=== PATIENT | female | born 1950 | race Two or more races ===

== ENCOUNTER 2025-02-04 14:18 | Emergency (ER) | payer MEDICARE, MEDICAID, SELFPAY ==
[2025-02-04 15:24] VITALS: BP 125/70; PULSE 85; RESP 20; TEMP 37.4; O2SAT 96
--- NOTE | 2025-02-04 15:46 | EDNOTE_ITS ---
<Statement entered by Rukhsana Campuzano MD - 02/05/25 06:24> As co-signing physician, I was present and available for consult prn. I concur with the plan and care as documented by the midlevel provider. Lower Extremity Injury RME/HPI General Chief Complaint: Extremity Injury, Lower Stated Complaint: Right leg pain Time Seen by Provider: 02/04/25 15:34 Arrival date/time: 02/04/25 14:18 74-year-old female presents to the emergency department for complaints of injury to her right moise Sunday patient saw her PCP and gave her tetanus shot. Patient reports now she has erythema to the site Limitations: no limitations Related Data Previous Rx's ?Medication ?Instructions ?Recorded clindamycin HCl 300 mg capsule 300 mg PO TID 7 days #2 1 caps 02/04/25 mupirocin 2 % topical ointment 1 applic topical TID 10 days #22 02/04/25 grams Allergies Allergy/AdvReac Type Severity Reaction Status Date / Time Penicillins Allergy Mild HIVES Verified 02/04/25 14:23 Review of Systems Review of Systems Systems Reviewed: All systems reviewed, normal except as documented Constitutional Constitutional: Reports system reviewed and no additional complaints, except as documented, Denies fever(s) and Denies headache(s) Eyes Eyes: Reports system reviewed and no additional complaints, except as documented and Denies blurry vision ENT Ears, Nose, Mouth, and Throat: Reports system reviewed and no additional complaints, except as documented, Denies headache(s), Denies nasal congestion and Denies nasal discharge Cardiovascular Cardiovascular: Reports system reviewed and no additional complaints, except as documented, Denies chest pain and Denies dyspnea Respiratory Respiratory: Reports system reviewed and no additional complaints, except as documented, Denies chest congestion, Denies cough and Denies dyspnea Gastrointestinal Gastrointestinal: Reports system reviewed and no additional complaints, except as documented and Denies abdominal pain Integumentary/Breasts Skin/Breast: Reports system reviewed and no additional complaints, except as documented, Denies rash and Reports wounds (Abrasion right lower extremity surrounding erythema) Neurologic Neurologic: Reports system reviewed and no additional complaints, except as documented, Reports as per HPI and Denies headache(s) Past Medical History Social History SMOKING STATUS: Never smoker ED Exam General Limitations: Present no limitations General appearance: Present alert and in no apparent distress Head Head exam: Present atraumatic Eye Eye exam: Present normal appearance, PERRL and EOMI ENT ENT exam: Present normal exam, normal oropharynx and mucous membranes moist Neck Neck exam: Present normal inspection, full ROM and trachea midline Chest Chest inspection: Present normal inspection and symmetric chest wall rise Respiratory Respiratory exam: Present normal lung sounds bilaterally Cardiovascular Cardiovascular exam: Present regular rate, normal rhythm and normal heart sounds Abdominal Exam Abdominal exam: Present soft and normal bowel sounds Extremities Exam Extremities exam: Present full ROM, tenderness, normal capillary refill and other (Erythema, pain right lower extremity which) Back Exam Back exam: Present normal inspection and full ROM Neurological Exam Neurological exam: Present alert, oriented X3 and CN II-XII intact Psychiatric Psychiatric exam: Present normal affect and normal mood Skin Skin exam: Present warm, dry, intact and normal color Course Quality Measures none Orders Category Date Time Status TDap [Obtain Tdap Consent] X1 Care 02/04/25 15:49 Completed TET,DIP/PERT AC (Adult)-Tdap [Boostrix Adult (Tdap) Med 02/04/25 15:49 Discontinued Vacc] 0.5 ml IMI .ONCE ONE Vital Signs Vital signs: Vital Signs Temperature 99.3 F 02/04/25 15:24 Pulse Rate 85 02/04/25 15:24 Respiratory Rate 20 02/04/25 15:24 Blood Pressure 125/70 02/04/25 15:24 Pulse Oximetry (%) 96 02/04/25 15:24 Oxygen Delivery Method Room Air 02/04/25 15:24 O2 saturation 96% on room air with normal limits Extremity Injury, Lower MDM Narrative MDM Narrative:: 74-year-old female presents to the emergency department for complaints of injury to her right moise Sunday patient saw her PCP and gave her tetanus shot. Patient reports now she has erythema to the site On exam patient is erythema right lower extremity I suspect patient has mild cellulitis patient will be treated with a course of antibiotics Patient discharged home in no distress to follow-up with primary care doctor in the next 24 to 48 hours and for any worsening symptoms to return to the ER immediately Patient data External records reviewed:: [facility] previous records Clinical information provided by:: patient Social determinants that could affect healthcare access:: none Patient has the following chronic illnesses:: None How is presenting disease/condition affected by chronic disease/condition?: no chronic disease Evaluation data The following diagnostics were reviewed and interpreted by me:: other (specify) Lab and/or radiology exams considered but not ordered:: Consider not ordered Interpretation Summary: N/A Medications / Prescriptions Medications or Prescriptions considered but not ordered:: Given Medication administrations:: Medication Administration History Discontinued Medications Diphtheria/Tetanus/Acell Pertussis (Diphth,Pertuss(Acell),Tet Vac 0.5 Ml Syr- Adult) 0.5 ml IMi .ONCE ONE Stop: 02/04/25 15:50 Last Admin: 02/04/25 15:54 Dose: Not Given Documented By: SANDIE Non-Admin Reason: Patient Refused Given Consultations Consultation(s) initiated? (list below): No Diagnosis Extremity Injury, Lower Differential Diagnosis: other (Abrasion, laceration) Most likely diagnosis given after review of the tests above:: Abrasion right lower extremity Admission Indicated Admission indicated?: not indicated Admission Request Was there a request for admission?: No Disposition Plan Disposition Plan: Discharge Discharge Attestation Discharge Attestation: The patient and all family members were given an opportunity to ask questions and understood the discharge instructions. Discharge instructions specifically effects, indications for sooner follow up or return to the emergency department, and the expected course of current diagnosis. Patient condition: Stable Discharge Plan Plan Patient Disposition: HOME (Self Care) Discharge Disposition comment: Stable Prescriptions/Referrals Prescriptions/Med Rec: New clindamycin HCl 300 mg capsule 300 mg PO TID 7 Days Qty: 21 0RF mupirocin 2 % ointment 1 applic topical TID 10 Days Qty: 22 0RF Problem List Clinical Impression: Abrasion of leg, right, infected Patient/Caregiver Discharge Instructions Education Materials: ED Wound Check (Infection) Additional Instructions: Please follow up with your primary care doctor in the next 24-48hrs for any worsening symptoms return here immediately Print Language: Bermudian Stand Alone Forms: Libby Award Info., Patient Portal Info Letter Vaccines Vaccines Given During Stay: TDaP PA/HAND [employer] Supervising Physician KALI/AYAAN Supervising Physician: Dr. campuzano
== END 2025-02-04 16:03 | disposition home or self-care (01) ==
PROVIDERS: Emergency Provider Emergency Medicine; PCP Physician Assistant
DX: S80.811A Abrasion, right lower leg, initial encounter (principal); X58.XXXA Exposure to other specified factors, initial encounter; Z23 Encounter for immunization; L08.9 Local infection of the skin and subcutaneous tissue, unspecified
CPT/HCPCS: 99281